=== PATIENT | male | born 1960 | race Hispanic/Latino ===

== ENCOUNTER → 2021-06-03 09:41 | Outpatient (CLI) | payer OTHER, SELFPAY ==
[2021-06-03 10:27] LABS: COVID19 -Nasal RAPID Negative (Negative)
== END ==
PROVIDERS: PCP Physician Assistant Medical; Visit Provider Surgery
DX: Z01.812 Encounter for preprocedural laboratory examination (principal); Z20.822 Contact with and (suspected) exposure to COVID-19
CPT/HCPCS: 87635; C9803

== ENCOUNTER 2021-06-04 07:29 | Day surgery (SDC) | payer OTHER, SELFPAY ==
[2021-06-04 07:45] VITALS: BP 145/91; PULSE 84; RESP 12; TEMP 36.6; O2SAT 99; BMI 25.7
--- NOTE | 2021-06-04 08:24 | PM.HP.1 ---
History of Present Illness History of Present Illness Date Patient Seen: 06/04/21 Time Patient Seen: 08:24 Chief complaint: SCREENING COLONOSCOPY Narrative: Screening colonoscopy, last scope was 10 years ago. No symptoms or family history of concern Patient History Family & Social History Social History: household members spouse Tobacco & Substance use: Smoking Status Never smoker alcohol intake never Substance Use Type does not use Meds Home Medications and Allergies Home Medications Medication Instructions Recorded Confirmed Type aspirin 81 mg tablet,delayed mg 06/04/21 History release benazepril 5 tab 06/04/21 History mg-hydrochlorothiazide 6.25 mg tablet Allergies Allergy/AdvReac Type Severity Reaction Status Date / Time prednisone AdvReac Intermediate ITCHING Verified 06/04/21 07:39 Exam Vital Signs (past 8 hours): - 06/04/21 07:45 Temperature 97.9 F Pulse Rate 84 Respiratory Rate 12 Blood Pressure 145/91 H Pulse Oximetry 99 Oxygen Delivery Method Room Air Const General: cooperative and healthy appearing Nutritional Appearance: average body habitus Orientation: alert and oriented x3 HENMT Head: normocephalic and atraumatic Eyes General: appearance normal, both eyes and all related structures Neck Neck: trachea midline Chest Chest: normal inspection of the chest Resp Effort & Inspection: normal respiratory effort and able to speak in complete sentences Auscultation: clear to auscultation bilaterally Cardio Rate: regular rate Rhythm: regular rhythm GI Inspection: normal to inspection Palpation: soft Skin General: no rashes or lesions noted Neuro Cognition: normal cognition Extrem General: full ROM Psych Appearance: grossly normal Affect: normal affect Assessment & Plan Assessment & Plan narrative: Colon cancer screening with colonoscopy, patient wants to try w/o meds. COVID-19 COVID-19 status: Negative Time Spent With Patient Time with patient: less than 30 minutes Critical Care time: I spent a total of [] minutes of critical care time on this patient's care today; this time is exclusive of procedural time.
--- NOTE | 2021-06-04 08:49 | PM.OP.ENDO ---
Operative Date/Time/Diagnoses Date of procedure: 06/04/21 Time of procedure: 08:49 Pre-op diagnosis: screening colon cancer Post-op diagnosis: same Procedure & Clinicians Study performed: Colonoscopy Same procedure as scheduled: Yes Indications: Colon cancer screening Surgeon: Leesa Katz Procedure Notes SCOAP/Timeout: Done Procedure in detail: Preop diagnosis: Colon cancer screening Postop diagnosis: Same Operative procedure: Colonoscopy without sedation Surgeon: Alissa Katz MD Findings: Normal colon, no diverticulosis, no polyps Procedure: Patient placed in lateral position. Rectal exam performed showing normal tone no masses. Colonoscope inserted into the rectum and advanced to the ileocecal valve with minimal difficulty. In the ascending colon we did had momentary pressure to the abdomen. Insufflation and extraction of the scope including retroflex in the rectum had the above findings Sedation minutes: 0 Specimen(s): none sent Complications: none Impression: Normal colonoscopy. Performed without sedation Post-procedure Recommendations: Colonscopy in 10 years Follow up: as needed Disposition: PACU
[2021-06-04 08:56] VITALS: BP 137/91; PULSE 79; RESP 14; TEMP 36.8; O2SAT 97
== END 2021-06-04 09:01 | disposition home or self-care (01) ==
PROVIDERS: PCP Physician Assistant Medical; Referring Provider Surgery; Visit Provider Surgery
PROC: 0DJD8ZZ Inspection of Lower Intestinal Tract, Via Natural or Artificial Opening Endoscopic (ICD-10-PCS; CPT 45378; principal; 2021-06-04 08:30)
DX: Z12.11 Encounter for screening for malignant neoplasm of colon (principal)
CPT/HCPCS: 45378

== ENCOUNTER 2022-11-03 09:42 | Day surgery (SDC) | payer OTHER, SELFPAY ==
[2022-10-27 09:17] VITALS: BMI 25.0
[2022-11-03 10:30] VITALS: BP 171/93; PULSE 67; RESP 16; TEMP 37; O2SAT 98; BMI 25.0
[2022-11-03] MEDS: ACETAMINOPHEN 325 MG TABLET 975 MG PO (11:05)
[2022-11-03] MEDS: OXYMETAZOLINE NASAL SPRAY 15 ML 2 SPRAYS NASAL ×2 (11:06→12:43)
[2022-11-03] MEDS: LACTATED RINGERS 1,000 ML 42 ML IV (11:06)
--- NOTE | 2022-11-03 12:01 | PM.PREOP ---
Pre-operative Note Interval Note History & Physical reviewed/Exam performed by Physician: Yes Changes to H&P: No
--- NOTE | 2022-11-03 12:01 | PM.HP.1 ---
History of Present Illness History of Present Illness Date Patient Seen: 11/03/22 Time Patient Seen: 12:02 Chief complaint: SDC Narrative: 62-year-old male last seen via telemedicine 09/20/2022, in clinic 07/14/2022 presents for evaluation of persistent right greater than left nasal obstruction. No interval health changes, he stopped his baby aspirin 7 days ago, medical clearance note 08/30/2022 previously reviewed. He would like to proceed. Patient History Medical History Arthritis Asthma Deviated septum HTN (hypertension) Nasal obstruction Nasal turbinate hypertrophy Presence of internal carotid stent (2015) Rhinorrhea TIA (transient ischemic attack) (2015) Tinnitus Surgical History Hx of colonoscopy (06/04/21) Family & Social History Social History: household members spouse Tobacco & Substance use: Smoking Status Never smoker alcohol intake never Substance Use Type does not use Meds Home Medications and Allergies Home Medications Medication Instructions Recorded Confirmed Type aspirin 81 mg tablet,delayed mg 06/04/21 History release benazepril 5 tab 06/04/21 History mg-hydrochlorothiazide 6.25 mg tablet Allergies Allergy/AdvReac Type Severity Reaction Status Date / Time prednisone AdvReac Intermediate ITCHING Verified 11/03/22 10:22 Review of Systems Review of Systems Narrative: Negative except as listed in the HPI Exam Vital Signs (past 8 hours): - 11/03/22 10:30 Temperature 98.6 F Pulse Rate 67 Respiratory Rate 16 Blood Pressure 171/93 H Pulse Oximetry 98 Oxygen Delivery Method Room Air Oxygen Delivery Method Room Air Narrative Exam Narrative: Well-developed well-nourished, heart regular rate and rhythm without murmur, lungs clear to auscultation bilaterally Assessment & Plan Assessment & Plan narrative: Assessment: Nasal airway obstruction, septal deviation, inferior turbinate hypertrophy, rhinorrhea Plan: Following discussion of the material risks benefits complications and alternatives, the patient elected to proceed.
--- NOTE | 2022-11-03 12:03 | P.OP_ITS ---
Operative Date/Time/Diagnoses Date of procedure: 11/03/22 Time of procedure: 13:41 Pre-op diagnosis: Nasal airway obstruction septal deviation, inferior turbinate hypertrophy, rhinorrhea Post-op diagnosis: same Procedure & Clinicians Procedure: 1. Septoplasty 2. Bilateral inferior turbinate reduction via intramural cautery Same procedure as scheduled: Yes Indications: 62 Year old with the above diagnoses incompletely managed with medical therapy presents for the above procedure. Following discussion of the material risks benefits complications and alternatives, the parents elected to proceed. Surgeon: Steve Robles Click Yes if Unassisted: Yes Anesthesia Type: General and Local Operative Notes Findings: 2-3+ right septal deviation, 2+ LEFT superior caudal deviation partially corrected. Poor tip support preoperatively. L>R ITH. Estimated Blood Loss (mL): 70 Procedure in detail: Following identification and confirmation of consent as well as preoperative Afrin nasal spray, the patient was brought to the operating room suite and placed in the supine position. General endotracheal anesthesia was administered . I infiltrated the septum widely bilaterally with 1% lidocaine 1 100,000 epinephrine followed by temporary packing with cotton with Afrin and 4% lidocaine. Following sterile prep and drape, the packing was removed and I performed a right lashawn-transfixion incision, elevated the right mucoperichondrial and mucoperiosteal flap. I disarticulated near the bony/cartilaginous junction and elevated the left mucoperiosteal flap. Deviated portions of the perpendicular plate of the ethmoid and vomer were resected. The residual quadrilateral cartilage was further straightened by trimming it inferiorly as well as reducing the maxillary crest. A 2 mm strip of cartilage paralleling the residual 1 cm dorsal and caudal strut was resected to further straighten the quadrilateral cartilage. The hemitransfixion incision was closed with interrupted 5 0 chromic followed by a running 4 0 plain gut mattress suture to reapproximate the septal flaps. At case completion, 20/1000th of an inch silastic splints were placed bilaterally, sutured anteriorly with a single 4 0 nylon. The head of each inferior turbinate had been previously infiltrated with additional local anesthetic and a 25 gauge spinal needle was used to impale the length of the turbinate, with cautery on a setting of 15 activated on slow withdrawal over 2 passes. The turbinates were then outfractured. The procedure completed, sponge and needle counts were correct and the patient was extubated in the operating room and taken to recovery room in stable condition without known complication. Postoperative care: Nasal saline every hour while awake, Vaseline or Polysporin to the nostrils at all times, begin irrigations t.i.d. beginning pod 1. Humidifier at the bedside blowing on the face. Tylenol alternating with Advil for pain control, oxycodone if necessary for breakthrough pain. Complications: none Post-operative Condition: stable Disposition: same day surgery Plan for aftercare: Nasal saline every hour while awake, begin irrigations t.i.d. tomorrow if desired. Polysporin to the nostrils at all times, Tylenol alternating with Advil for pain control, oxycodone for breakthrough pain. Elevate head of bed, no nose blowing, no straining for 2 weeks. Ice directly under the nose on the upper lip has tolerated 24-48 hours at a minimum. Follow-up in 1 week for nasal splint removal. Afrin nasal spray only for collins bleeding.
--- NOTE | 2022-11-03 12:39 | SUR.OPER ---
Supine on padded OR bed, head on pillow, arms padded and tucked at sides, legs uncrossed, safety belt at thigh, tape over blanket over lower legs .
[2022-11-03] MEDS: LIDOCAINE 1% W/EPI 20 ML INJ (12:44)
[2022-11-03] MEDS: LIDOCAINE 4% SOLN 50 ML 20 ML TOP (12:44)
[2022-11-03] MEDS: BACITRACIN OINT 0.9 GM PCKT 1 APPLIC TOP (12:45)
[2022-11-03 13:47] VITALS: BP 167/98; PULSE 89; RESP 14; TEMP 37; O2SAT 99
[2022-11-03 13:52] VITALS: BP 156/89; PULSE 84; RESP 14; O2SAT 99
[2022-11-03 13:57] VITALS: BP 153/92; PULSE 88; RESP 14; O2SAT 97
[2022-11-03 14:02] VITALS: BP 147/84; PULSE 91; RESP 12; TEMP 36.7; O2SAT 98
[2022-11-03] MEDS: OXYCODONE IR 5 MG TABLET PO (14:14)
== END 2022-11-03 14:15 | disposition home or self-care (01) ==
PROVIDERS: PCP Physician Assistant Medical; Referring Provider Otolaryngology; Visit Provider Otolaryngology
PROC: (CPT 30520; principal; 2022-11-03 11:30)
DX: J34.2 Deviated nasal septum (principal); J34.89 Other specified disorders of nose and nasal sinuses; J34.3 Hypertrophy of nasal turbinates
CPT/HCPCS: 30520; 30802; A9270; J1100; J2405; J2704; J3010